=== PATIENT | female | born 1940 | race Caucasian/White ===

== ENCOUNTER 2020-08-07 08:38 | Outpatient (CLI) | payer MEDICARE, SELFPAY ==
--- NOTE | 2020-08-07 08:42 | USCV_ITS ---
Genet Kendrick Age: 79 Gender: F : 1940 Exam Date: 08/07/2020 09:04 Ordering Phys: Larissa Lala MD Technologist: Gaston José Exam Location: [facility] – [place] Indication: MURMUR BP: 124 / 73 HR: 56 Rhythm: Sinus Technical Quality: Fair MEASUREMENTS (Male / Female) Normal Values 2D ECHO LV Diastolic Diameter PLAX 4.2 cm 4.2 - 5.9 / 3.9 - 5.3 cm LV Systolic Diameter PLAX 2.6 cm IVS Diastolic Thickness 1.2 cm 0.6 - 1.0 / 0.6 - 0.9 cm IVS Systolic Thickness 1.1 cm LVPW Diastolic Thickness 1.2 cm 0.6 - 1.0 / 0.6 - 0.9 cm LVPW Systolic Thickness 1.5 cm LVOT Diameter 2.1 cm LV Ejection Fraction 2D Teich 67.9 % LV Ejection Fraction MOD 2C 33.9 % LV Ejection Fraction 2C AL 30.5 % LA Diameter 4.0 cm LA Width 4.0 cm LA Height 4.6 cm RA Width 3.5 cm RA Height 5.0 cm M-MODE LV Diastolic Diameter MM 4.9 cm 4.2 - 5.9 / 3.9 - 5.3 cm LV Systolic Diameter MM 3.3 cm LV Ejection Fraction MM Teich 61.3 % IVS Diastolic Thickness MM 0.9 cm 0.6 - 1.0 / 0.6 - 0.9 cm IVS Systolic Thickness MM 1.4 cm LVPW Diastolic Thickness MM 1.2 cm 0.6 - 1.0 / 0.6 - 0.9 cm LVPW Systolic Thickness MM 1.8 cm RV Diastolic Diameter MM 1.2 cm Aortic Annulus Diameter 3.6 cm LA Ao Ratio MM 1.1 MV E Point Septal Separation 0.5 cm DOPPLER AV Peak Velocity 501.0 cm/s LVOT Peak Velocity 101.0 cm/s AV Area Cont Eq vti 0.7 cm squared AV Area Cont Eq pk 0.7 cm squared MV Area PHT 3.5 cm squared Mitral E to A Ratio 1.1 MV E' Velocity 8.0 cm/s Mitral E to MV E' Ratio 13.3 Mitral E to LV E' Lateral Ratio 12.3 Mitral E to LV E' Septal Ratio 14.4 TR Peak Velocity 325.0 cm/s TR Peak Gradient 42.2 mmHg TV Peak E Velocity 128.0 cm/s Right Atrial Pressure 3.0 mmHg Pulmonary Artery Systolic Pressu 45.3 mmHg FINDINGS Left Ventricle Normal left ventricular size and systolic function, EF 55 %. Mild left ventricular hypertrophy. No regional wall motion abnormalities. Grade I/IV diastolic dysfunction (abnormal relaxation filling pattern), normal to mildly elevated filling pressures. Right Ventricle The right ventricle is normal in size and function. Right Atrium The right atrium is normal in size. Left Atrium Mildly increased left atrial size. Mitral Valve Thickened mitral valve. Mild mitral annular calcification. Aortic Valve Severe aortic valve stenosis, mean gradient 47.4 mmHg, ANTIONETTE 0.69 cm squared. Mild aortic valve regurgitation. Peak velocity of 5.01 m/s. Peak gradient of 100.5 mmHg Tricuspid Valve Mild tricuspid valve regurgitation. Pulmonic Valve Pulmonic valve not well visualized. Pericardium Normal pericardium without effusion. Aorta Normal aortic annulus size. CONCLUSIONS Normal left ventricular size and systolic function, EF 55 %. Mild left ventricular hypertrophy. No regional wall motion abnormalities. Grade I/IV diastolic dysfunction (abnormal relaxation filling pattern), normal to mildly elevated filling pressures. Mildly increased left atrial size. Thickened mitral valve. Mild mitral annular calcification. Mild tricuspid valve regurgitation. Severe aortic valve stenosis, mean gradient 47.4 mmHg, ANTIONETTE 0.69 cm squared. Mild aortic valve regurgitation. Peak velocity of 5.01 m/s. Peak gradient of 100.5 mmHg. Estimated pulmonary artery peak systolic pressure of 45 mmHg There is no pericardial effusion. There are no intracardiac masses. Compared to the study from 08/30/2019, there is worsening of the aortic valve stenosis Dr Santiago Norman MD FAC (Electronically Signed) Final Date: 07 August 2020 12:07 S
== END 2020-08-07 08:39 | disposition home or self-care (01) ==
LOC: US 08:40
PROVIDERS: PCP Family Medicine; Visit Provider Family Medicine
DX: R01.1 Cardiac murmur, unspecified; I08.3 Combined rheumatic disorders of mitral, aortic and tricuspid valves
CPT/HCPCS: 93306

== ENCOUNTER 2020-08-15 14:29 | Outpatient (CLI) | payer MEDICARE, SELFPAY ==
--- NOTE | 2020-08-15 14:50 | XR_ITS ---
WS: [id number] DEXA (DUAL ENERGY X-RAY ABSORPTIOMETRY) Bone mineral density was performed using a [employer] machine. HISTORY: ASYMPTOMATIC MENOPAUSAL STATE COMPARISON: None available. Lumbar spine BMD (L1-L4): 1.044 g/cm2 T score: -1.1 Z score: 1.0 Total hip BMD: Left: 0.717 g/cm2. T score: -2.3 Z score: -0.1 Right: 0.716 g/cm2. T score: -2.3 Z score: -0.1 10 year probability of a major osteoporotic fracture is 19%. LEFT convex curvature lumbar spine. Mild narrowing of the hip joints. XR/XR DEXA axial skeleton* [id number] IMPRESSION: OSTEOPENIA based upon the WHO classification for females.
== END 2020-08-15 14:30 | disposition home or self-care (01) ==
LOC: RADWPI 14:34
PROVIDERS: PCP Family Medicine; Visit Provider Family Medicine
DX: Z78.0 Asymptomatic menopausal state (principal); M85.89 Other specified disorders of bone density and structure, multiple sites
CPT/HCPCS: 77080

== ENCOUNTER 2021-03-06 10:31 | Outpatient (CLI) | payer MEDICARE, SELFPAY ==
--- NOTE | 2021-03-06 10:40 | USCV_ITS ---
Genet Kendrick Age: 80 Gender: F : 1940 Exam Date: 03/06/2021 11:17 Ordering Phys: Larissa Lala MD Technologist: [place] [facility] [place]: BP: 159 / 76 HR: 53 Rhythm: Atrial fibrillation Technical Quality: Adequate MEASUREMENTS (Male / Female) Normal Values 2D ECHO LV Diastolic Diameter PLAX 3.7 cm 4.2 - 5.9 / 3.9 - 5.3 cm LV Systolic Diameter PLAX 2.2 cm IVS Diastolic Thickness 1.4 cm 0.6 - 1.0 / 0.6 - 0.9 cm IVS Systolic Thickness 1.8 cm LVPW Diastolic Thickness 1.5 cm 0.6 - 1.0 / 0.6 - 0.9 cm LVPW Systolic Thickness 1.7 cm LVOT Diameter 1.7 cm LV Ejection Fraction 2D Teich 72.0 % LV Ejection Fraction MOD 2C 71.8 % LV Ejection Fraction 2C AL 70.2 % LA Diameter 3.8 cm LA Width 3.9 cm LA Height 3.9 cm RA Width 2.8 cm RA Height 4.7 cm Aorta at Sinotubular Diameter 2.2 cm M-MODE LV Diastolic Diameter MM 4.7 cm 4.2 - 5.9 / 3.9 - 5.3 cm LV Systolic Diameter MM 3.3 cm LV Ejection Fraction MM Teich 56.1 % IVS Diastolic Thickness MM 1.2 cm 0.6 - 1.0 / 0.6 - 0.9 cm IVS Systolic Thickness MM 1.9 cm LVPW Diastolic Thickness MM 0.8 cm 0.6 - 1.0 / 0.6 - 0.9 cm LVPW Systolic Thickness MM 1.1 cm Aortic Annulus Diameter 1.6 cm LA Ao Ratio MM 2.3 MV E Point Septal Separation 0.3 cm DOPPLER AV Peak Velocity 523.7 cm/s LVOT Peak Velocity 95.0 cm/s AV Area Cont Eq vti 0.4 cm squared AV Area Cont Eq pk 0.4 cm squared MV Area PHT 3.5 cm squared Mitral E to A Ratio 0.7 MV E' Velocity 25.5 cm/s Mitral E to MV E' Ratio 6.3 Mitral E to LV E' Lateral Ratio 6.6 Mitral E to LV E' Septal Ratio 6.2 TR Peak Velocity 230.6 cm/s TR Peak Gradient 21.3 mmHg TR Mean Velocity 144.0 cm/s TR Mean Gradient 9.2 mmHg TR Velocity Time Integral 57.6 cm Right Atrial Pressure 3.0 mmHg Pulmonary Artery Systolic Pressu 24.3 mmHg PV Peak Velocity 91.0 cm/s FINDINGS Left Ventricle Normal left ventricular size and systolic function, EF 75 %. Moderate left ventricular hypertrophy. No regional wall motion abnormalities. Grade I/IV diastolic dysfunction (abnormal relaxation filling pattern), normal to mildly elevated filling pressures. Right Ventricle The right ventricle is normal in size and function. Right Atrium The right atrium is normal in size. Left Atrium Mildly increased left atrial size. Mitral Valve Moderate mitral annular calcification. Thickened mitral valve. Trace mitral valve regurgitation. Aortic Valve Severe aortic valve stenosis, mean gradient 64.3 mmHg, ANTIONETTE 0.44 cm squared. Peak velocity of 5.31 m/s. Peak gradient of 130 mmHg . mild aortic valve regurgitation. Tricuspid Valve Trace to mild tricuspid valve regurgitation. Pulmonic Valve Structurally normal pulmonic valve without significant stenosis. There is no pulmonic regurgitation. Pericardium Small pericardial effusion. Aorta Normal ascending aorta dimension. CONCLUSIONS Severe aortic valve stenosis, mean gradient 64.3 mmHg, ANTIONETTE 0.44 cm squared. Peak velocity of 5.31 m/s. Peak gradient of 130 mmHg . mild aortic valve regurgitation. Normal left ventricular size and systolic function, EF 75 %. Moderate left ventricular hypertrophy. No regional wall motion abnormalities. Grade I/IV diastolic dysfunction (abnormal relaxation filling pattern), normal to mildly elevated filling pressures. Moderate mitral annular calcification. Thickened mitral valve. Trace mitral valve regurgitation. Mildly increased left atrial size. Trace to mild tricuspid valve regurgitation. There is no pericardial effusion. There are no intracardiac masses. Compared to the study from 08/07/2020, there is some worsening of the aortic valve stenosis Dr Santiago Norman MD FACC (Electronically Signed) Final Date: 06 March 2021 18:58 S
== END 2021-03-06 10:32 | disposition home or self-care (01) ==
LOC: US 10:32
PROVIDERS: PCP Family Medicine; Visit Provider Family Medicine
DX: I08.3 Combined rheumatic disorders of mitral, aortic and tricuspid valves (principal)
CPT/HCPCS: 93306